=== PATIENT | male | born 1960 | race Caucasian/White ===

== ENCOUNTER 2018-02-25 07:28 | Day surgery (SDC) | payer OTHER ==
[2018-02-25 08:19] VITALS: BMI 46.2
--- NOTE | 2018-02-25 08:38 | HP ---
Admitting History and Physical - Primary Care Physician PCP: susan farnsworth - Admission Chief Complaint: obstructive uropaphy, rec. uti History Source: Patient Limitations to Obtaining History: No Limitations, Unresponsive - Past Medical History Cardiovascular: Yes: HTN, Hyperlipdemia Gastrointestinal: Yes: GERD Renal/: Yes: BPH, UTI. No: Hematuria Psych: Yes: Anxiety Musculoskeletal: Yes: Other (Muscular Dystrophy) Rheumatology: Yes: Rheumatoid Arthritis, Vasculitis Endocrine: Yes: Diabetes Mellitus - Advance Directives Advance Directives: Yes: Health Care Proxy - Smoking History Smoking history: Never smoked - Alcohol/Substance Use Hx Alcohol Use: Yes (occas) Home Medications - Allergies Allergies/Adverse Reactions: Allergies Allergy/AdvReac Type Severity Reaction Status Date / Time Penicillins Allergy Unknown Verified 02/25/18 08:10 - Home Medications Home Medications: Ambulatory Orders Atorvastatin Ca 10 mg PO HS 01/25/17 Finasteride 1 tab PO DAILY 01/25/17 Metoprolol Succinate 25 mg PO HS 01/25/17 Tamsulosin HCl 0.4 mg PO HS 01/25/17 Losartan Potassium 25 mg PO HS 02/24/18 Physical Examination Vital Signs: Vital Signs Temperature 98.2 F 02/25/18 07:46 Pulse Rate 77 02/25/18 07:46 Respiratory Rate 16 02/25/18 07:46 Blood Pressure 135/75 02/25/18 07:46 O2 Sat by Pulse Oximetry (%) 96 02/25/18 07:46
[2018-02-25] MEDS ORDERED: ACETAMINOPHEN 325 MG TABLET (FP) PO PRN (09:48)
[2018-02-25] MEDS ORDERED: HYDROmorphone HCL CARPU-JECT 2 MG/1 ML DISP.SYRIN IM ONE (09:48)
[2018-02-25] MEDS ORDERED: DEXTROSE 5%-0.45% SALINE 1,000 ML IV SCH (10:00)
--- NOTE | 2018-02-25 10:03 | OP ---
Operative Note - Note: Operative Date: 02/25/18 Pre-Operative Diagnosis: bph with obs. Operation: tuvp/turp Findings: bph trabeculated bladder Surgeon: Hugh Hudson Anesthesia: General, Spinal Specimens Removed: prostate tissue Estimated Blood Loss (mls): 50 Drains & Tubes with Location: 24f 3way-30 cc sanon Blood Volume Replaced (mls): 0 Fluid Volume Replaced (mls): 0 Operative Report Dictated: Yes
[2018-02-25] MEDS ORDERED: GENTAMICIN SO4 80 MG/2 ML VIAL ONE (10:10)
[2018-02-25] MEDS ORDERED: BUPIVACAINE 0.75% IN DEXTROSE/PF 2ML AMPULE NR ONE (10:11)
[2018-02-25] MEDS ORDERED: MIDAZOLAM HCL 2 MG/2 ML SINGLE DOSE VIAL ONE ×2 (10:11→10:38)
[2018-02-25] MEDS ORDERED: GENTAMICIN SO4 80 MG/2 ML VIAL IVPB ONE (10:15)
[2018-02-25] MEDS ORDERED: TAMSULOSIN HCL 0.4 MG CAP.ER.24H (FP) PO ONE (10:15)
[2018-02-25] MEDS ORDERED: VANCOMYCIN 1,000 MG VIAL (RESTRICTED TO ID ONLY) IVPB ONE (10:21)
[2018-02-25] MEDS ORDERED: PROPOFOL 20 ML ONE ×2 (10:26)
[2018-02-25] MEDS ORDERED: morphine SULFATE 4 MG/ML VIAL IVPUSH ONE (10:45)
[2018-02-25] MEDS ORDERED: ONDANSETRON 4 MG/2 ML VIAL IVPUSH PRN (11:39)
[2018-02-25] MEDS ORDERED: LACTATED RINGERS SOLUTION 1,000 ML IV SCH (11:45)
--- NOTE | 2018-02-25 12:25 | OP ---
DATE OF OPERATION: 02/25/2018 SURGEON: Hugh Hudson MD PREOPERATIVE DIAGNOSIS: Benign prostatic hypertrophy, bladder outlet obstruction. POSTOPERATIVE DIAGNOSIS: Benign prostatic hypertrophy, bladder outlet obstruction with trabeculated bladder and groin lesion. OPERATIVE PROCEDURE: Cystourethroscopy, transurethral resection of prostate, transurethral vaporization of the prostate, and excision of multiple scrotal and groin lesions.. ANESTHESIA: Spinal. DESCRIPTION OF PROCEDURE: Under above stated anesthesia, patient was prepped and draped in the usual sterile manner. He was placed in the dorsal lithotomy position. Cystoscopy revealed trilobar hypertrophy of the prostate. There was lateral lobe . There were approximately 240 mL of residual urine; this was sent for culture and sensitivity. Inspection of the bladder revealed a grade 2-3 trabeculation. No lesions were noted. No calculi were seen. Ureteral orifices were within normal limits with efflux of clear urine bilaterally. Dome and lateral martinez were clear. The monopolar resectoscope was inserted, and resection of the median lobe was performed in the usual fashion. Prostate chips were evacuated with an DriveHQ evacuator. Hemostasis was secured with electrocoagulation. The plasma button was then inserted, and the lateral lobes were vaporized. This commenced at the 6 o'clock position of the right lateral lobe and went on up to the 12 o'clock position. The same thing was done to the left lateral lobe. The vaporization was commenced at the bladder neck and ended at the level of the verumontanum. No active bleeding was noted. The bladder was emptied. The scope was removed. The 24-Cypriot 3-way 30-mL Aguirre was inserted. This was connected to continuous bladder irrigation with normal saline. The patient was then reprepped and draped and placed in the supine position. There was a 2-cm papillary exophytic lesion in the left groin. This was excised with cautery. There were 3 other lesions on the left hemiscrotum and penile shaft. They were also excised. The lesion in the groin was closed with two 4-0 Vicryl suture ligatures. No bleeding was noted. The patient tolerated the procedure well. He returned to the recovery room in good condition. Ernie [id number]
[2018-02-25] MEDS: CIPROFLOXACIN 500 MG TABLET (RESTRICTED TO ID) PO SCH ×2 (17:39→22:18)
[2018-02-25] MEDS: ACETAMINOPHEN 325 MG TABLET (FP) PO PRN (18:16)
[2018-02-25] MEDS: oxyCODONE HCL 5 MG TABLET PO PRN (18:17)
[2018-02-25] MEDS: metoPROLOL SUCCINATE 25 MG TAB.SR.24H (FP) PO SCH (21:51)
[2018-02-25] MEDS ORDERED: ATORVASTATIN CA 10 MG TABLET (FP) PO SCH (22:00)
[2018-02-25] MEDS ORDERED: ZOLPIDEM TARTRATE 5 MG TABLET PO ONE (22:00)
[2018-02-25] MEDS ORDERED: DOCUSATE SODIUM 100 MG CAPSULE (FP) PO SCH (22:00)
[2018-02-26] MEDS: oxyCODONE HCL 5 MG TABLET PO PRN (09:47)
[2018-02-26] MEDS: metoPROLOL SUCCINATE 25 MG TAB.SR.24H (FP) PO SCH (09:48)
[2018-02-26] MEDS: ACETAMINOPHEN 325 MG TABLET (FP) PO PRN (09:48)
[2018-02-26] MEDS ORDERED: LOSARTAN POTASSIUM 50 MG TABLET (FP) PO SCH (10:00)
--- NOTE | 2018-02-26 11:42 | PN ---
Progress Note (short form) - Note Progress Note: Anesthesiology Post-op 57 y.o. POD#1 s/p TURP under spinal anesthesia. Pt. is awake and alert in bed. He states he feels well and pain is under control. No n/v or h/a. Able to move legs with no residual paresthesia. VSS. 57 y.o. with stable post-operative course s/p TURP and no apparent anesthesia- related complications. Continue post-op management as per primary team.
[2018-02-26 12:44] VITALS: BP 132/60; PULSE 78; TEMP 98.2
--- NOTE | 2018-03-01 15:22 | PATH ---
Surgical Pathology Report Patient Name: ZORAN WOLFE [facility]. Rec. #: [id number] /Age/Gender: 1960 (Age: 57) / M Account: [id number] Location: AMBULATORY SURG Taken: 02/25/2018 Received: 02/25/2018 Reported: 03/01/2018 Physicians: Hugh Wolfe M.D. Specimen(s) Received A: PROSTATE CHIPS B: SKIN TAG Clinical History Hypertrophy of prostate Final Diagnosis A. PROSTATE CHIPS, BIOPSY: HYPERTROPHIC STROMA (SMOOTH MUSCLE) WITHOUT GLANDULAR COMPONENTS. SEPARATE UROTHELIAL MUCOSA WITH CHRONIC INFLAMMATION. B. SKIN LESIONS: SEGMENT OF SKIN WITH COMPOUND, PREDOMINANTLY INTRADERMAL MELANOCYTIC NEVUS. THE LESION PRESENT AT THE MARGIN. TWO SEPARATE FRAGMENTS OF SKIN TAG. Electronically Signed Nikita Cornejo M.D. Gross Description A. Received in formalin labeled "prostate chips," is a 1 g, 2.3 x 1.5 x 0.3 cm aggregate of multiple kumar, rubbery portions of tissue, consistent with prostate chips. The specimen is entirely submitted in one cassette. B. Received in formalin labeled "skin lesions," are 3 kumar, polypoid portions of skin ranging from 0.6 x 0.4 x 0.2 cm to 2.0 x 1.6 x 1.2 cm. The base of the specimens are inked blue and the largest portion is sectioned. The specimen is entirely submitted in 2 cassettes as follows: 1-2 small polyps; 2-largest serially sectioned polyp. /02/25/2018 saudi02/25/2018
== END 2018-02-26 12:52 | disposition home or self-care (01) ==
LOC: JASU-SURG 07:28 → JASUSAT 07:28 → J8W 13:57 → JASUSAT 02-26 12:52
PROVIDERS: ATTEND Urology
PROC: 0HB9XZZ Excision of Perineum Skin, External Approach (ICD-10-PCS; 2018-02-25)
PROC: 0VT08ZZ Resection of Prostate, Via Natural or Artificial Opening Endoscopic (ICD-10-PCS; principal; 2018-02-25 09:00)
DX: N40.1 Benign prostatic hyperplasia with lower urinary tract symptoms (principal); R39.12 Poor urinary stream; L91.8 Other hypertrophic disorders of the skin
CPT/HCPCS: 87086; 88305-TC; 94010; 94760

== ENCOUNTER 2022-01-19 04:10 | Day surgery (SDC) | payer OTHER ==
[2022-01-14 16:47] VITALS: BMI 35.4
[2022-01-19] MEDS ORDERED: MIDAZOLAM HCL 2 MG/2 ML SINGLE DOSE VIAL ONE (12:32)
[2022-01-19] MEDS ORDERED: CLINDAMYCIN PHOSPHATE 900 MG/6 ML VIAL IVPB ONE (12:46)
[2022-01-19] MEDS ORDERED: CLINDAMYCIN PHOSPHATE 600 MG/4 ML VIAL ONE (13:26)
[2022-01-19] MEDS ORDERED: ACETAMINOPHEN 325 MG TABLET (FP) PO ONE (13:48)
[2022-01-19] MEDS ORDERED: oxyCODONE HCL 5 MG TABLET PO ONE ×2 (14:45)
[2022-01-19] MEDS ORDERED: oxyCODONE HCL 5 MG TABLET ONE (16:06)
[2022-01-19 16:36] VITALS: BP 119/78; PULSE 73; TEMP 97.7
== END 2022-01-19 16:45 | disposition home or self-care (01) ==
LOC: JASU-SURG 04:10
PROVIDERS: ATTEND Urology
PROC: 0VT08ZZ Resection of Prostate, Via Natural or Artificial Opening Endoscopic (ICD-10-PCS; principal; 2022-01-19 11:00)
PROC: 0TND8ZZ Release Urethra, Via Natural or Artificial Opening Endoscopic (ICD-10-PCS; 2022-01-19 11:00)
DX: N40.0 Benign prostatic hyperplasia without lower urinary tract symptoms (principal); N13.5 Crossing vessel and stricture of ureter without hydronephrosis; N32.89 Other specified disorders of bladder
CPT/HCPCS: 87086; 87186; 88108; 88305-TC; 94760

== ENCOUNTER 2022-01-23 06:55 | Inpatient (IN) | payer OTHER ==
[2022-01-23] MEDS ORDERED: SODIUM CHLORIDE 0.9% 500 ML INFUS.BAG IV ONE (07:11)
[2022-01-23] MEDS ORDERED: ACETAMINOPHEN 1000 MG/100 ML BAG IVPB ONE (07:15)
[2022-01-23] MEDS ORDERED: ACETAMINOPHEN INJECTION 100 ML IVPB ONE (07:20)
[2022-01-23] MEDS ORDERED: MEROPENEM 1 GM in DEXTROSE 5%-WATER 100 ML IVPB ONE (07:48)
[2022-01-23 07:57] LABS: BASO % 0.4 % (0-2.0); EOS % 4.1 % (0-4.5); HEMATOCRIT 35.5 % (35.4-49); HEMOGLOBIN 11.2 GM/dL (11.7-16.9); LYMPH % 14.9 % (8-40); MCH 23.1 pg (25.7-33.7); MCHC 31.4 g/dl (32.0-35.9); MEAN CELL VOLUME 73.5 fl (80-96); MEAN PLT VOLUME 9.6 fl (7.5-11.1); MONO % 0.4 % (3.8-10.2); NEUT % 80.2 % (42.8-82.8); PLATELET COUNT 135 10^3/uL (134-434); RBC 4.83 M/mm3 (4.00-5.60); RDW 16.9 % (11.9-15.9); WHITE BLOOD COUNT 3.3 K/mm3 (4.0-10.0)
[2022-01-23] MEDS ORDERED: MEROPENEM 1 GM VIAL (RESTRICTED TO ID) IVPB ONE ×2 (07:59→17:10)
[2022-01-23 08:05] LABS: INR 1.17 (0.83-1.09); PROTHROMBIN TIME (PATIENT) 13.5 SEC (9.7-13.0); VENOUS BASE EXCESS -1.9 mmol/L (-2-2); VENOUS O2 SATURATION 69.6 % (70-80); VENOUS PCO2 35.6 mmHg (38-52); VENOUS PH 7.412 (7.310-7.410)
[2022-01-23 08:08] LABS: ACTIVATED PTT 28.7 SECONDS (25.2-36.5)
[2022-01-23 08:21] LABS: CALCIUM 8.7 mg/dL (8.5-10.1)
[2022-01-23 08:22] LABS: ALBUMIN 3.2 g/dl (3.4-5.0); BLOOD UREA NITROGEN 18.7 mg/dL (7-18)
[2022-01-23 08:26] LABS: BILIRUBIN,TOTAL 0.4 mg/dL (0.2-1); TOT PROT 6.8 g/dl (6.4-8.2)
[2022-01-23 08:32] LABS: LACTIC ACID 2.8 mmol/L (0.4-2.0)
[2022-01-23 10:39] LABS: LACTIC ACID 2.1 mmol/L (0.4-2.0)
[2022-01-23 11:59] LABS: EPI CELLS 11 /uL (0-25.1); HYALINE CASTS 15 /uL (0-3.1); URINE APPEARANCE TURBID; URINE BACTERIA 4428 /uL (0-1359); URINE BILIRUBIN NEGATIVE (NEGATIVE); URINE COLOR ORANGE; URINE GLUCOSE (UA) NEGATIVE (NEGATIVE); URINE KETONE TRACE (NEGATIVE); URINE LEUK ESTERASE 2+ (NEGATIVE); URINE NITRITE POSITIVE (NEGATIVE); URINE PROTEIN 3+ (NEGATIVE); URINE RBC 13211 /uL (0-23.9); URINE WBC 4147 /uL (0-25.8)
[2022-01-23] MEDS: SODIUM CHLORIDE 1,000 ML IV SCH (12:45)
[2022-01-23] MEDS ORDERED: FAMOTIDINE 20 MG TABLET PO ONE (14:04)
[2022-01-23 16:59] VITALS: BMI 35.4
[2022-01-23] MEDS ORDERED: DEXTROSE 5%-WATER 100 ML IVPB ONE (17:10)
[2022-01-23] MEDS: MEROPENEM 1 GM in DEXTROSE 5%-WATER 100 ML IVPB SCH (17:12)
[2022-01-23] MEDS ORDERED: ACETAMINOPHEN 1000 MG/100 ML BAG IVPB PRN (19:52)
[2022-01-23] MEDS: ACETAMINOPHEN 325 MG TABLET (FP) PO PRN (20:13)
[2022-01-24] MEDS ORDERED: MEROPENEM 1 GM VIAL (RESTRICTED TO ID) IVPB ONE ×3 (00:19→16:56)
[2022-01-24] MEDS ORDERED: DEXTROSE 5%-WATER 100 ML IVPB ONE ×3 (00:20→16:57)
[2022-01-24] MEDS: MEROPENEM 1 GM in DEXTROSE 5%-WATER 100 ML IVPB SCH ×3 (02:42→17:00)
[2022-01-24] MEDS: ACETAMINOPHEN 325 MG TABLET (FP) PO PRN ×2 (03:41→17:05)
[2022-01-24] MEDS: SODIUM CHLORIDE 1,000 ML IV SCH ×2 (03:43→17:00)
[2022-01-24] MEDS: FAMOTIDINE 20 MG TABLET PO SCH (17:00)
[2022-01-24] MEDS: FINASTERIDE 5 MG TABLET (FP) PO SCH (21:48)
[2022-01-24] MEDS: TAMSULOSIN HCL 0.4 MG CAP PO SCH (21:48)
[2022-01-24] MEDS: METOPROLOL TARTRATE 50 MG TABLET (FP) PO SCH (21:49)
[2022-01-24] MEDS: ACETAMINOPHEN 500 MG TABLET (FP) PO SCH (21:49)
[2022-01-25] MEDS ORDERED: MEROPENEM 1 GM VIAL (RESTRICTED TO ID) IVPB ONE ×3 (02:30→17:03)
[2022-01-25] MEDS ORDERED: DEXTROSE 5%-WATER 100 ML IVPB ONE ×3 (02:31→17:03)
[2022-01-25] MEDS: MEROPENEM 1 GM in DEXTROSE 5%-WATER 100 ML IVPB SCH ×2 (02:47→09:54)
[2022-01-25 07:53] LABS: BASO % 1.2 % (0-2.0); HEMATOCRIT 32.3 % (35.4-49); HEMOGLOBIN 10.3 GM/dL (11.7-16.9); LYMPH % 28.3 % (8-40); MCH 23.5 pg (25.7-33.7); MCHC 31.9 g/dl (32.0-35.9); MEAN CELL VOLUME 73.6 fl (80-96); MEAN PLT VOLUME 9.2 fl (7.5-11.1); MONO % 9.5 % (3.8-10.2); PLATELET COUNT 93 10^3/uL (134-434); RBC 4.39 M/mm3 (4.00-5.60); RDW 17.4 % (11.9-15.9); WHITE BLOOD COUNT 3.9 K/mm3 (4.0-10.0)
[2022-01-25 08:15] LABS: CALCIUM 8.4 mg/dL (8.5-10.1)
[2022-01-25 08:19] LABS: CREATININE 0.7 mg/dL (0.55-1.3)
[2022-01-25] MEDS: FAMOTIDINE 20 MG TABLET PO SCH (09:54)
[2022-01-25] MEDS: ACETAMINOPHEN 500 MG TABLET (FP) PO SCH ×2 (10:13→21:40)
[2022-01-25 11:33] LABS: PHOSPHOROUS 3.3 mg/dL (2.5-4.9)
[2022-01-25 11:37] LABS: N-TERMINAL BNP 189.2 pg/ml (5-125)
[2022-01-25] MEDS: SODIUM CHLORIDE 1,000 ML IV SCH ×2 (17:26→20:36)
[2022-01-25] MEDS ORDERED: DEXTROSE 5%-WATER - 50 ML IVPB ONE (17:40)
[2022-01-25] MEDS ORDERED: cefTRIAXone SODIUM 1 GM VIAL ONE (17:40)
[2022-01-25] MEDS: CEFTRIAXONE 1 GM in DEXTROSE 5%-WATER - 50 ML IVPB SCH (17:42)
[2022-01-25] MEDS: FINASTERIDE 5 MG TABLET (FP) PO SCH (21:40)
[2022-01-25] MEDS: TAMSULOSIN HCL 0.4 MG CAP PO SCH (21:41)
[2022-01-25] MEDS: METOPROLOL TARTRATE 50 MG TABLET (FP) PO SCH (21:42)
[2022-01-26 07:19] LABS: BASO % 1.5 % (0-2.0); EOS % 10.2 % (0-4.5); HEMATOCRIT 30.6 % (35.4-49); MCH 23.6 pg (25.7-33.7); MCHC 32.8 g/dl (32.0-35.9); MEAN CELL VOLUME 72.1 fl (80-96); MONO % 8.1 % (3.8-10.2); NEUT % 44.2 % (42.8-82.8); PLATELET COUNT 111 10^3/uL (134-434); RBC 4.24 M/mm3 (4.00-5.60); RDW 17.1 % (11.9-15.9); WHITE BLOOD COUNT 4.1 K/mm3 (4.0-10.0)
[2022-01-26 07:41] LABS: CALCIUM 8.2 mg/dL (8.5-10.1)
[2022-01-26 07:42] LABS: BLOOD UREA NITROGEN 9.9 mg/dL (7-18)
[2022-01-26 07:45] LABS: CREATININE 0.6 mg/dL (0.55-1.3)
[2022-01-26] MEDS ORDERED: DEXTROSE 5%-WATER - 50 ML IVPB ONE (09:04)
[2022-01-26] MEDS ORDERED: cefTRIAXone SODIUM 1 GM VIAL ONE (09:04)
[2022-01-26] MEDS: ACETAMINOPHEN 500 MG TABLET (FP) PO SCH ×2 (09:09→21:12)
[2022-01-26] MEDS: FAMOTIDINE 20 MG TABLET PO SCH (09:12)
[2022-01-26] MEDS: CEFTRIAXONE 1 GM in DEXTROSE 5%-WATER - 50 ML IVPB SCH (09:15)
[2022-01-26] MEDS: SODIUM CHLORIDE 1,000 ML IV SCH (13:50)
[2022-01-26] MEDS: TAMSULOSIN HCL 0.4 MG CAP PO SCH (21:12)
[2022-01-26] MEDS: METOPROLOL TARTRATE 50 MG TABLET (FP) PO SCH (21:12)
[2022-01-26] MEDS: FINASTERIDE 5 MG TABLET (FP) PO SCH (21:13)
[2022-01-27] MEDS ORDERED: REGADENOSON 0.4 MG/5 ML PRE-FILLED SYRINGE IVPUSH ONE ×2 (09:11→09:15)
[2022-01-27] MEDS: FAMOTIDINE 20 MG TABLET PO SCH (14:19)
[2022-01-27] MEDS: CEFTRIAXONE 1 GM in DEXTROSE 5%-WATER - 50 ML IVPB SCH ×2 (14:19→14:40)
[2022-01-27] MEDS: ACETAMINOPHEN 500 MG TABLET (FP) PO SCH (14:20)
[2022-01-27] MEDS ORDERED: DEXTROSE 5%-WATER - 50 ML IVPB ONE (14:36)
[2022-01-27] MEDS ORDERED: cefTRIAXone SODIUM 1 GM VIAL ONE (14:36)
[2022-01-27] MEDS: ACETAMINOPHEN 325 MG TABLET (FP) PO PRN (14:49)
[2022-01-27 15:07] VITALS: BP 132/67; PULSE 86; TEMP 99
== END 2022-01-27 18:55 | disposition home or self-care (01) | DRG 721 ==
LOC: JER 06:55 → JERBED 09:06 → J4W 10:04
DX: T81.40XA Infection following a procedure, unspecified, initial encounter (principal); T81.44XA Sepsis following a procedure, initial encounter; A41.89 Other specified sepsis; E87.2 Acidosis; I95.9 Hypotension, unspecified; G71.00 Muscular dystrophy, unspecified; E78.5 Hyperlipidemia, unspecified; N99.89 Other postprocedural complications and disorders of genitourinary system; I10 Essential (primary) hypertension; K21.9 Gastro-esophageal reflux disease without esophagitis; M06.9 Rheumatoid arthritis, unspecified; E11.9 Type 2 diabetes mellitus without complications; F41.9 Anxiety disorder, unspecified; E66.9 Obesity, unspecified; Z68.35 Body mass index [BMI] 35.0-35.9, adult; N39.0 Urinary tract infection, site not specified; G47.30 Sleep apnea, unspecified; B96.20 Unspecified Escherichia coli [E. coli] as the cause of diseases classified elsewhere; M54.50 Low back pain, unspecified; N40.1 Benign prostatic hyperplasia with lower urinary tract symptoms; R33.8 Other retention of urine; Y83.8 Other surgical procedures as the cause of abnormal reaction of the patient, or of later complication, without mention of misadventure at the time of the procedure
CPT/HCPCS: 36415; 71045-TC-FY; 78452-TC; 80048; 80053; 80061; 81003; 82550; 82553; 82803; 83036; 83605; 83735; 83880; 84100; 84443; 84484; 85025; 85610; 85730; 86850; 86900; 86901; 87040; 87086; 87186; 87804; 87807; 93005; 93010; 93017; 93306-TC; 99285-25; A9502; C9803-CS; J2785; U0003; U0005

== ENCOUNTER 2022-02-17 12:04 | Inpatient (IN) | payer OTHER ==
[2022-02-17 13:49] LABS: BASO % 0.3 % (0-2.0); EOS % 1.1 % (0-4.5); HEMATOCRIT 35.4 % (35.4-49); HEMOGLOBIN 10.9 GM/dL (11.7-16.9); LYMPH % 11.4 % (8-40); MCH 22.8 pg (25.7-33.7); MCHC 30.9 g/dl (32.0-35.9); MEAN CELL VOLUME 73.5 fl (80-96); MEAN PLT VOLUME 9.6 fl (7.5-11.1); NEUT % 84.2 % (42.8-82.8); PLATELET COUNT 159 10^3/uL (134-434); RBC 4.81 M/mm3 (4.00-5.60); RDW 18.5 % (11.9-15.9)
[2022-02-17 14:05] LABS: ALBUMIN 3.5 g/dl (3.4-5.0); BLOOD UREA NITROGEN 23.9 mg/dL (7-18); CALCIUM 8.4 mg/dL (8.5-10.1)
[2022-02-17 14:07] LABS: CREATININE 0.9 mg/dL (0.55-1.3)
[2022-02-17 14:09] LABS: BILIRUBIN,TOTAL 0.5 mg/dL (0.2-1)
[2022-02-17 14:27] LABS: ACTIVATED PTT 36.6 SECONDS (25.2-36.5); INR 1.11 (0.83-1.09); PROTHROMBIN TIME (PATIENT) 12.8 SEC (9.7-13.0)
[2022-02-17 15:05] LABS: EPI CELLS 3 /uL (0-25.1); HYALINE CASTS 0 /uL (0-3.1); URINE APPEARANCE CLOUDY; URINE BACTERIA 158 /uL (0-1359); URINE BILIRUBIN NEGATIVE (NEGATIVE); URINE COLOR YELLOW; URINE GLUCOSE (UA) TRACE (NEGATIVE); URINE KETONE NEGATIVE (NEGATIVE); URINE LEUK ESTERASE 2+ (NEGATIVE); URINE NITRITE NEGATIVE (NEGATIVE); URINE PROTEIN 4+ (NEGATIVE); URINE UROBILINOGEN 0.2 mg/dL (0.2-1.0); URINE WBC 4 /uL (0-25.8)
[2022-02-17] MEDS ORDERED: SODIUM CHLORIDE 0.9% 500 ML INFUS.BAG IV ONE (15:17)
[2022-02-17 15:25] LABS: URINE RBC 66 /uL (0-23.9)
[2022-02-17] MEDS ORDERED: CEFTRIAXONE 1 GM in DEXTROSE 5%-WATER - 100 ML IVPB ONE (17:51)
[2022-02-17] MEDS ORDERED: CEFTRIAXONE 1 GM/50 ML BAG ONE (18:02)
[2022-02-17] MEDS ORDERED: ACETAMINOPHEN 1000 MG/100 ML BAG IVPB ONE (20:28)
[2022-02-17] MEDS: SODIUM CHLORIDE 1,000 ML IV SCH (20:45)
[2022-02-17] MEDS: FINASTERIDE 5 MG TABLET (FP) PO SCH (23:05)
[2022-02-17] MEDS: BETHANECHOL CHLORIDE 25 MG TABLET PO SCH (23:05)
[2022-02-18 01:03] VITALS: BMI 35.6
[2022-02-18] MEDS: SODIUM CHLORIDE 1,000 ML IV SCH (01:25)
[2022-02-18] MEDS: BETHANECHOL CHLORIDE 25 MG TABLET PO SCH ×3 (09:03→23:02)
[2022-02-18 09:34] LABS: BASO % 0.7 % (0-2.0); EOS % 10.6 % (0-4.5); HEMATOCRIT 29.9 % (35.4-49); HEMOGLOBIN 9.6 GM/dL (11.7-16.9); LYMPH % 24.5 % (8-40); MCH 23.5 pg (25.7-33.7); MCHC 32.1 g/dl (32.0-35.9); MEAN CELL VOLUME 73.1 fl (80-96); MEAN PLT VOLUME 9.2 fl (7.5-11.1); MONO % 5.3 % (3.8-10.2); NEUT % 58.9 % (42.8-82.8); PLATELET COUNT 120 10^3/uL (134-434); RBC 4.09 M/mm3 (4.00-5.60); WHITE BLOOD COUNT 4.4 K/mm3 (4.0-10.0)
[2022-02-18] MEDS ORDERED: PATIENT'S OWN MEDICATION (NON-FORMULARY) (Vibegron [Gemtesa] 75 MG Tablet) PO SCH (10:00)
[2022-02-18 11:09] LABS: BLOOD UREA NITROGEN 15.7 mg/dL (7-18); CALCIUM 8.5 mg/dL (8.5-10.1)
[2022-02-18 11:10] LABS: ALBUMIN 3.1 g/dl (3.4-5.0); MAGNESIUM 2.3 mg/dL (1.8-2.4)
[2022-02-18 11:13] LABS: CREATININE 0.7 mg/dL (0.55-1.3); PHOSPHOROUS 2.9 mg/dL (2.5-4.9); TOT PROT 6.3 g/dl (6.4-8.2)
[2022-02-18] MEDS ORDERED: cefTRIAXone SODIUM 1 GM VIAL ONE (11:13)
[2022-02-18] MEDS ORDERED: DEXTROSE 5%-WATER - 50 ML IVPB ONE (11:13)
[2022-02-18] MEDS: TAMSULOSIN HCL 0.4 MG CAP PO SCH ×2 (11:15→21:15)
[2022-02-18] MEDS: CEFTRIAXONE 1 GM in DEXTROSE 5%-WATER - 50 ML IVPB SCH (11:15)
[2022-02-18] MEDS: LACTOBACILLUS ACIDOPHILUS 1 TABLET PO SCH (11:15)
[2022-02-18 11:16] LABS: BILIRUBIN,TOTAL 0.5 mg/dL (0.2-1)
[2022-02-18] MEDS: POLYETHYLENE GLYCOL (HEALTHYLAX) 3350 17 GM PACKET PO SCH ×2 (14:57→21:15)
[2022-02-18] MEDS ORDERED: ACETAMINOPHEN 325 MG TABLET (FP) PO PRN (15:01)
[2022-02-18] MEDS: FINASTERIDE 5 MG TABLET (FP) PO SCH (21:15)
[2022-02-18] MEDS ORDERED: METOPROLOL TARTRATE 50 MG TABLET (FP) PO SCH (22:00)
[2022-02-19] MEDS: BETHANECHOL CHLORIDE 25 MG TABLET PO SCH ×2 (06:13→13:43)
[2022-02-19 08:32] LABS: BASO % 1.1 % (0-2.0); EOS % 12.9 % (0-4.5); HEMATOCRIT 30.7 % (35.4-49); HEMOGLOBIN 9.7 GM/dL (11.7-16.9); LYMPH % 35.5 % (8-40); MCHC 31.6 g/dl (32.0-35.9); MEAN CELL VOLUME 72.8 fl (80-96); MEAN PLT VOLUME 9.2 fl (7.5-11.1); MONO % 6.7 % (3.8-10.2); NEUT % 43.8 % (42.8-82.8); PLATELET COUNT 124 10^3/uL (134-434); RBC 4.22 M/mm3 (4.00-5.60); RDW 17.5 % (11.9-15.9); WHITE BLOOD COUNT 4.5 K/mm3 (4.0-10.0)
[2022-02-19] MEDS: TAMSULOSIN HCL 0.4 MG CAP PO SCH (08:48)
[2022-02-19] MEDS ORDERED: SODIUM CHLORIDE 1,000 ML IV SCH (09:00)
[2022-02-19 09:06] LABS: CALCIUM 8.6 mg/dL (8.5-10.1)
[2022-02-19 09:07] LABS: BLOOD UREA NITROGEN 15.6 mg/dL (7-18)
[2022-02-19 09:10] LABS: CREATININE 0.6 mg/dL (0.55-1.3)
[2022-02-19] MEDS ORDERED: cefTRIAXone SODIUM 1 GM VIAL ONE (09:30)
[2022-02-19] MEDS ORDERED: DEXTROSE 5%-WATER - 50 ML IVPB ONE (09:30)
[2022-02-19] MEDS: CEFTRIAXONE 1 GM in DEXTROSE 5%-WATER - 50 ML IVPB SCH (09:52)
[2022-02-19] MEDS: LACTOBACILLUS ACIDOPHILUS 1 TABLET PO SCH (09:52)
[2022-02-19] MEDS: POLYETHYLENE GLYCOL (HEALTHYLAX) 3350 17 GM PACKET PO SCH ×2 (09:53→10:10)
[2022-02-19] MEDS ORDERED: MINERAL OIL ENEMA 133 ML ENEMA RC ONE (12:06)
[2022-02-19] MEDS: SODIUM CHLORIDE 1,000 ML IV SCH (12:21)
[2022-02-19 14:51] VITALS: BP 127/75; PULSE 80; TEMP 98.3
== END 2022-02-19 07:00 | disposition home or self-care (01) | DRG 813 ==
LOC: JER 12:04 → JERBED 17:59 → J7W 02-18 00:30
PROVIDERS: ADMIT Hospitalist
PROC: 0WH Anatomical Regions, General, Insertion (ICD-10-PCS; principal; 2022-02-17)
DX: N99.820 Postprocedural hemorrhage of a genitourinary system organ or structure following a genitourinary system procedure (principal); I10 Essential (primary) hypertension; N40.0 Benign prostatic hyperplasia without lower urinary tract symptoms; R33.9 Retention of urine, unspecified; I95.9 Hypotension, unspecified; Y83.9 Surgical procedure, unspecified as the cause of abnormal reaction of the patient, or of later complication, without mention of misadventure at the time of the procedure; R31.0 Gross hematuria; E66.9 Obesity, unspecified; Z68.35 Body mass index [BMI] 35.0-35.9, adult; E78.5 Hyperlipidemia, unspecified; K21.9 Gastro-esophageal reflux disease without esophagitis
CPT/HCPCS: 0241U-QW; 36415; 76775-TC; 80048; 80053; 81003; 83735; 84100; 85025; 85610; 85730; 86850; 86900; 86901; 87086; 93005; 93010; 99285-25

== ENCOUNTER 2022-06-01 03:58 | Day surgery (SDC) | payer OTHER ==
[2022-05-26 15:44] VITALS: BMI 35.9
[2022-06-01] MEDS ORDERED: LIDOCAINE HCL 2% JELLY 10 ML CARTRIDGE ONE (14:18)
[2022-06-01] MEDS ORDERED: DEXAMETHASONE SOD PHOSPHATE 4 MG/1 ML VIAL ONE (15:41)
[2022-06-01] MEDS ORDERED: ONDANSETRON 4 MG/2 ML VIAL IVPUSH PRN (15:54)
[2022-06-01] MEDS ORDERED: ACETAMINOPHEN 325 MG TABLET (FP) PO PRN (15:54)
[2022-06-01] MEDS ORDERED: LACTATED RINGERS SOLUTION 1,000 ML IV SCH (16:00)
[2022-06-01 17:36] VITALS: RESP 18
[2022-06-01 18:11] VITALS: BP 145/76; PULSE 82; TEMP 97.9
== END 2022-06-01 18:40 | disposition home or self-care (01) ==
LOC: JASU-SURG 03:58
PROVIDERS: ATTEND Urology
PROC: 0VT08ZZ Resection of Prostate, Via Natural or Artificial Opening Endoscopic (ICD-10-PCS; 2022-06-01)
PROC: 0TND8ZZ Release Urethra, Via Natural or Artificial Opening Endoscopic (ICD-10-PCS; principal; 2022-06-01 14:30)
DX: N40.1 Benign prostatic hyperplasia with lower urinary tract symptoms (principal); R33.8 Other retention of urine; R32 Unspecified urinary incontinence; N35.912 Unspecified bulbous urethral stricture, male; N13.8 Other obstructive and reflux uropathy
CPT/HCPCS: 88305-TC; 94760

== ENCOUNTER 2022-09-15 04:27 | Day surgery (SDC) | payer OTHER ==
[2022-09-11 16:14] VITALS: BMI 36.4
[2022-09-15] MEDS ORDERED: ONDANSETRON 4 MG/2 ML VIAL IVPUSH PRN (14:57)
[2022-09-15] MEDS ORDERED: PROMETHAZINE HCL 25 MG/1 ML VIAL IVPUSH PRN (14:57)
[2022-09-15] MEDS ORDERED: oxyCODONE HCL 5 MG TABLET PO PRN (14:57)
[2022-09-15] MEDS ORDERED: LACTATED RINGERS SOLUTION 1,000 ML IV SCH (15:00)
[2022-09-15] MEDS ORDERED: LIDOCAINE HCL 2% JELLY (5 ML/TUBE) ONE ×2 (15:32→15:33)
[2022-09-15] MEDS ORDERED: LIDOCAINE HCL 2% 100 MG/5 ML DISP.SYRIN ONE (15:34)
[2022-09-15] MEDS ORDERED: LIDOCAINE HCL 2% JELLY 11 ML TP ONE (15:34)
[2022-09-15] MEDS ORDERED: FENTANYL CITRATE/PF 50 MCG/ML VIAL ONE ×5 (15:36→17:40)
[2022-09-15] MEDS ORDERED: PROPOFOL 20 ML ONE (15:36)
[2022-09-15] MEDS ORDERED: DEXAMETHASONE SOD PHOSPHATE 4 MG/1 ML VIAL ONE (15:37)
[2022-09-15] MEDS ORDERED: MIDAZOLAM HCL 2 MG/2 ML SINGLE DOSE VIAL ONE (15:37)
[2022-09-15] MEDS ORDERED: LIDOCAINE HCL/PF 2% SDV 5ML VIAL ONE (15:37)
[2022-09-15] MEDS ORDERED: ceFAZolin SODIUM 1 GM VIAL IVPB ONE (15:50)
[2022-09-15] MEDS ORDERED: ceFAZolin SODIUM 1 GM VIAL ONE (15:51)
[2022-09-15] MEDS ORDERED: KETOROLAC TROMETHAMINE 30 MG/1 ML VIAL ONE (16:02)
[2022-09-15 19:37] VITALS: RESP 18
[2022-09-15 19:40] VITALS: BP 120/70; PULSE 60; TEMP 97
== END 2022-09-15 19:30 | disposition home or self-care (01) ==
LOC: JASU-SURG 04:27
PROVIDERS: ATTEND Urology
PROC: 0TND8ZZ Release Urethra, Via Natural or Artificial Opening Endoscopic (ICD-10-PCS; principal; 2022-09-15 15:00)
PROC: 0TBC8ZZ Excision of Bladder Neck, Via Natural or Artificial Opening Endoscopic (ICD-10-PCS; 2022-09-15 15:00)
DX: N35.912 Unspecified bulbous urethral stricture, male (principal)
CPT/HCPCS: 88307-TC; 94760; C1758

== ENCOUNTER 2023-04-13 19:08 | Emergency (ER) | payer OTHER ==
[2023-04-13 19:14] VITALS: TEMP 98.6; BMI 33.6
[2023-04-13] MEDS ORDERED: HALOPERIDOL LACTATE 5 MG/ML IM ONE (19:27)
[2023-04-13] MEDS ORDERED: ONDANSETRON 4 MG/2 ML VIAL IVPUSH ONE (19:47)
[2023-04-13] MEDS ORDERED: LACTATED RINGERS SOLUTION 1,000 ML/1,000 ML INFUS.BAG IV SCH ×3 (20:00→21:45)
[2023-04-13] MEDS ORDERED: ONDANSETRON 4 MG/2 ML VIAL ONE (20:04)
[2023-04-13 20:24] LABS: HEMATOCRIT 38.8 % (35.4-49); HEMOGLOBIN 12.2 GM/dL (11.7-16.9); MCH 24.1 pg (25.7-33.7); MCHC 31.3 g/dl (32.0-35.9); MEAN PLT VOLUME 11.1 fl (7.5-11.1); PLATELET COUNT 135 10^3/uL (134-434); RBC 5.04 M/mm3 (4.00-5.60); RDW 16.7 % (11.9-15.9)
[2023-04-13 20:45] LABS: POTASSIUM 3.6 mmol/L (3.5-5.1)
[2023-04-13 20:47] LABS: CALCIUM 8.9 mg/dL (8.5-10.1)
[2023-04-13 20:48] LABS: ALBUMIN 3.5 g/dl (3.4-5.0); BLOOD UREA NITROGEN 19.6 mg/dL (7-18); MAGNESIUM 1.6 mg/dL (1.8-2.4)
[2023-04-13 20:51] LABS: CREATININE 1.2 mg/dL (0.55-1.3)
[2023-04-13 20:52] LABS: BILIRUBIN,TOTAL 0.5 mg/dL (0.2-1)
[2023-04-13 20:53] LABS: TOT PROT 6.7 g/dl (6.4-8.2)
[2023-04-13] MEDS ORDERED: MAGNESIUM SULF 50% (8.12 MEQ/2 ML-1 GM VIAL) IVPB ONE (21:15)
[2023-04-13 21:21] LABS: ANISOCYTOSIS 1+; MACROCYTOSIS 1+
[2023-04-13] MEDS ORDERED: MAGNESIUM SULFATE IN WATER 2 GM/50 ML IVPB IVPB ONE (21:25)
[2023-04-13 22:27] VITALS: BP 124/74; PULSE 104; RESP 16
== END 2023-04-13 22:59 | disposition home or self-care (01) ==
LOC: JER 19:08
PROC: 3E033GC Introduction of Other Therapeutic Substance into Peripheral Vein, Percutaneous Approach (ICD-10-PCS; principal; 2023-04-13)
PROC: 3E033GC Introduction of Other Therapeutic Substance into Peripheral Vein, Percutaneous Approach (ICD-10-PCS; 2023-04-13)
DX: R11.2 Nausea with vomiting, unspecified (principal); R03.0 Elevated blood-pressure reading, without diagnosis of hypertension; R42 Dizziness and giddiness; R53.1 Weakness; R00.0 Tachycardia, unspecified
CPT/HCPCS: 36415; 80053; 83735; 84484; 85025; 93005; 93010; 99284-25

== ENCOUNTER → 2023-04-13 | Day surgery (SDC) | payer OTHER ==
[2023-04-12 09:52] VITALS: BMI 34.1
[~2023-04-13] MED LIST: ACETAMINOPHEN 325 MG TABLET (FP) PO PRN; KETAMINE HCL 500 MG/10 ML VIAL ONE; LACTATED RINGERS SOLUTION 1,000 ML IV SCH; MIDAZOLAM HCL 2 MG/2 ML SINGLE DOSE VIAL ONE; ONABOTULINUMTOXINA 200 UNIT/VIAL VIAL IM ONE; ONDANSETRON 4 MG/2 ML VIAL IVPUSH PRN; PROPOFOL 20 ML ONE; ceFAZolin SODIUM 1 GM VIAL IVPB ONE; ceFAZolin SODIUM 1 GM VIAL ONE; oxyCODONE HCL 5 MG TABLET PO PRN
[2023-04-13 17:30] VITALS: RESP 18
[2023-04-13 18:10] VITALS: BP 117/56; PULSE 97; TEMP 97.1
== END | disposition home or self-care (01) ==
LOC: JASU-SURG 05:33
PROVIDERS: ATTEND Urology
PROC: 0T7D8ZZ Dilation of Urethra, Via Natural or Artificial Opening Endoscopic (ICD-10-PCS; 2023-04-13)
PROC: 0T7D3ZZ Dilation of Urethra, Percutaneous Approach (ICD-10-PCS; principal; 2023-04-13 13:45)
PROC: 3E0K8GC Introduction of Other Therapeutic Substance into Genitourinary Tract, Via Natural or Artificial Opening Endoscopic (ICD-10-PCS; 2023-04-13 13:45)
DX: N35.919 Unspecified urethral stricture, male, unspecified site (principal); N39.41 Urge incontinence
CPT/HCPCS: 82962; 94760; J0585

== ENCOUNTER 2024-10-06 04:38 | Day surgery (SDC) | payer OTHER ==
[2024-09-29 14:06] VITALS: BMI 34.4
[2024-10-06] MEDS ORDERED: BUPIVACAINE HCL/PF 0.5% (5MG/ML) 10 ML VIAL ONE (13:56)
[2024-10-06] MEDS ORDERED: ONDANSETRON 4 MG/2 ML VIAL IVPUSH PRN (14:15)
[2024-10-06] MEDS ORDERED: MIDAZOLAM HCL 2 MG/2 ML SINGLE DOSE VIAL ONE (14:32)
[2024-10-06] MEDS ORDERED: ROCURONIUM BROMIDE 50 MG/5 ML SYRINGE ONE ×2 (14:32→15:17)
[2024-10-06] MEDS ORDERED: PROPOFOL 20 ML ONE ×2 (14:32→14:45)
[2024-10-06] MEDS ORDERED: ETOMIDATE 20 MG/10 ML VIAL IVPUSH ONE (14:32)
[2024-10-06] MEDS: CLINDAMYCIN 600 MG PREMIX BAG IVPB ONE (14:55)
[2024-10-06] MEDS: BUPIVACAINE HCL/PF 0.5% (5 MG/ML) 30 ML VIAL IJ ONE (15:56)
[2024-10-06] MEDS ORDERED: ACETAMINOPHEN INJECTION 100 ML ONE (16:40)
[2024-10-06] MEDS ORDERED: oxyCODONE HCL 5 MG TABLET PO PRN (19:19)
[2024-10-06] MEDS: oxyCODONE HCL 5 MG TABLET PO PRN (20:00)
[2024-10-06 21:45] VITALS: BP 135/84; PULSE 73; RESP 19; TEMP 97.5
== END 2024-10-06 23:57 | disposition home or self-care (01) ==
LOC: JASUSAT 04:38 → JASU-SURG 04:38 → J7W 19:44 → JASUSAT 23:57
PROVIDERS: ATTEND Surgery
PROC: 8E0W4CZ Robotic Assisted Procedure of Trunk Region, Percutaneous Endoscopic Approach (ICD-10-PCS; 2024-10-06)
PROC: 0YUA4JZ Supplement Bilateral Inguinal Region with Synthetic Substitute, Percutaneous Endoscopic Approach (ICD-10-PCS; principal; 2024-10-06 13:00)
DX: K40.00 Bilateral inguinal hernia, with obstruction, without gangrene, not specified as recurrent (principal)
CPT/HCPCS: 49650; S2900; 94760; C1781; J0131